=== PATIENT | male | born 1945 | race Caucasian/White ===

== ENCOUNTER 2023-02-04 21:22 | Inpatient (IN) | payer OTHER ==
[2023-02-04 22:16] LABS: BASOPHILS ABSOLUTE AUTO 0.05 K/mm3 (0.00-0.23); BASOPHILS PERCENT AUTO 1 % (0-2); EOSINOPHILS ABSOLUTE AUTO 0.13 K/mm3 (0.00-0.68); EOSINOPHILS PERCENT AUTO 2 % (0-6); Hemoglobin 12.6 g/dL (13.5-17.5); IMMATURE GRAN ABSOLUTE AUTO 0.04 K/mm3 (0.00-0.10); IMMATURE GRAN PERCENT AUTO 1 % (0-1); LYMPHOCYTES ABSOLUTE AUTO 1.36 K/mm3 (0.84-5.20); LYMPHOCYTES PERCENT AUTO 19 % (21-46); MONOCYTES PERCENT AUTO 8 % (4-13); Mean Corpuscular HGB Conc 34.1 g/dL (31.5-36.5); Mean Corpuscular Volume 91 fL (80-100); Mean Platelet Volume 9.3 fL (9.1-12.4); NEUTROPHILS ABSOLUTE AUTO 5.04 K/mm3 (1.96-9.15); NEUTROPHILS PERCENT AUTO 70 % (41-73); Platelet Count 163 K/mm3 (150-400); RDW Standard Deviation 40.2 fL (35.1-46.3); Red Blood Cell Count 4.06 M/mm3 (4.30-5.90); White Blood Cell Count 7.22 K/mm3 (4.00-11.30)
[2023-02-04 22:25] LABS: Base Excess Venous 8.3 mmol/L; pH Blood Venous 7.39 (7.34-7.37)
[2023-02-04 22:31] LABS: International Normalized Ratio 0.98; Prothrombin Time Results 10.3 Sec (9.7-11.5)
[2023-02-04 22:51] LABS: Albumin, Blood 3.4 g/dL (3.4-5.0); Albumin/Globulin Ratio 0.8 (0.8-1.8); Bilirubin, Total 0.2 mg/dL (0.1-1.0); Calcium, Blood 8.9 mg/dL (8.5-10.1); Creatinine, Blood 1.5 mg/dL (0.60-1.20); Globulin, Blood 4.1 g/dL (2.2-4.0); Phosphorus, Blood 2.7 mg/dL (2.5-4.9); Potassium, Blood 4.2 mmol/L (3.5-5.5); Thyroid Stimulating Hormone 6.46 uIU/mL (0.360-4.800); Total Protein, Blood 7.5 g/dL (6.4-8.2)
[2023-02-04] MEDS ORDERED: Acetaminophen650 M1 PO (23:31)
[2023-02-04] MEDS ORDERED: AMLO10 PO (23:31)
[2023-02-04] MEDS ORDERED: BISA10S PR (23:31)
[2023-02-04] MEDS ORDERED: DIVA500EC PO (23:32)
[2023-02-04] MEDS ORDERED: VITAMIN D5000 UNIT PO (23:32)
[2023-02-04] MEDS ORDERED: DRON5 PO (23:33)
[2023-02-04] MEDS ORDERED: DRON2.5 PO (23:33)
[2023-02-04] MEDS ORDERED: DONEPEZIL HCL10 MG PO (23:33)
[2023-02-04] MEDS ORDERED: GABA100 PO (23:34)
[2023-02-04] MEDS ORDERED: BASAGLAR K100 UNIT/1 SC (23:34)
[2023-02-04] MEDS ORDERED: LORA2 SC (23:35)
[2023-02-04] MEDS ORDERED: MELA3 PO (23:35)
[2023-02-04] MEDS ORDERED: LOSA50 PO (23:35)
[2023-02-04] MEDS ORDERED: OLAN5 IM (23:36)
[2023-02-04] MEDS ORDERED: MIRALAX17 GM PO (23:36)
[2023-02-04] MEDS ORDERED: PROP10 PO (23:37)
[2023-02-04] MEDS ORDERED: Seroquel Xr50 MG PO ×2 (23:38→23:39)
[2023-02-05] VITALS (19 sets, daily range): BP systolic 123–169; BP diastolic 56–115
--- NOTE | 2023-02-05 04:45 | NUR ---
ADMISSION/SHIFT SUMMARY PT ADMITTED TO PCU 05 @ 0330. PT SLID OVER FROM [facility] BED. PT LETHARGIC UPON ASSESSMENT, RESPONDS TO PAINFUL STIMULI ONLY. PT ADMITTED FOR HEMORRHAGIC STROKE. PT WITH R. SIDE DEFECIT AND R. FACIAL DROOP. UNABLE TO FOLLOW COMMANDS OR MAKE NEEDS KNOWN. BP STABLE, HR SB 50'S, AFEBRILE, SATS >98% ON ROOM AIR. PULSES STRONG AND EQUAL. RESPIRATIONS SHALLOW, LUNG SOUNDS CLEAR IN UPPER, DIM IN BASES. PT ADMITTED WITH COMFORT CARE MEASURES ONLY. PT SON AT BEDSIDE. WHILE DISCUSSING COMFORT CARE MEASURES, PT CONFUSED ON DIFFERENCE BETWEEN COMFORT CARE AND DNR/DNI THIS RN EXPLAINED DIFFERENCE OF DNR/DNI AND COMFORT CARE MEASURES. SON THEN CALLED PT AND DISCUSSED CODE STATUS. FAMILY WOULD LIKE TO CHANGE PT CODE STATUS FROM COMFORT CARE TO DNR/DNI AT THIS TIME AND RE EVALUATE LATER. ARBORICULTURE TEACHER SHERYL MADE AWARE, CALL PLACED OUT TO MD. MD CHANGED PT CODE STATUS TO NOW DNR/DNI, ORDERS FOR PALLETIVE CARE RECEIVED. BED IN LOW, ALARM ON, CALL LIGHT IN REACH.
--- NOTE | 2023-02-05 10:23 | NUR ---
AM NOTE: PATIENT LAYING IN BED EYES CLOSED, SNORING. PATIENT DOES NOT WAKE TO VERBAL OR TOUCH STIMULOUS, NOT OPENING EYES. GROANS AND MOANS WITH PAINFUL STIMULI NO WORDS. PUPILS PINPOINT AND NONRESPONSIVE. PATIENT NOT FOLLOWING ANY COMMANDS. SPONTANOUS MOVEMENT TO LEFT ARM/HAND, PATIENT PULLING AT SHEETS, ATTENDS AND GOWN WITH LEFT SIDE. NO MOVEMENT ON RIGHT SIDE OBSERVED BY THIS RN. PATIENT NOT SQUEEZING RIGHT HAND. Q2 TURNING AND NEEDED. BED BATH GIVEN THIS AM. ON ROOM AIR, LUNGS SOUNDING CLEAR AND DIMINISHED IN BASES. SNORE OBSERVED PATIENT SLEEPS. SATING UPPER 90'S. BOWEL TONES PRESENT. PATIENT NPO. ORAL CARE Q4 AND NEEDED. ATTENDS IN PLACE. PATIENT INCONTINENT. BP STABLE. NO TELE, MEDICAL STATUS. PPP. NO EDEMA NOTED. BLOOD SUGARS Q6. SCATTERED BRUISING TO ARMS AND REDNESS NOTED TO FOREHEAD. FAMILY AT BEDSIDE. DR. ARMENDARIZ AND PALLIATIVE CARE RN CALLED. PALLIATIVE CARE RN AT BEDSIDE. CALL LIGHT IN REACH.
[2023-02-05 10:39] LABS: BASOPHILS ABSOLUTE AUTO 0.05 K/mm3 (0.00-0.23); BASOPHILS PERCENT AUTO 0 % (0-2); EOSINOPHILS ABSOLUTE AUTO 0.03 K/mm3 (0.00-0.68); EOSINOPHILS PERCENT AUTO 0 % (0-6); Hematocrit 41.5 % (37.0-53.0); Hemoglobin 14.1 g/dL (13.5-17.5); IMMATURE GRAN ABSOLUTE AUTO 0.05 K/mm3 (0.00-0.10); IMMATURE GRAN PERCENT AUTO 0 % (0-1); LYMPHOCYTES ABSOLUTE AUTO 1.23 K/mm3 (0.84-5.20); LYMPHOCYTES PERCENT AUTO 10 % (21-46); MONOCYTES ABSOLUTE AUTO 0.75 K/mm3 (0.16-1.47); MONOCYTES PERCENT AUTO 6 % (4-13); Mean Corpuscular HGB 30.8 pg (26.0-34.0); Mean Corpuscular Volume 91 fL (80-100); Mean Platelet Volume 9.2 fL (9.1-12.4); NEUTROPHILS ABSOLUTE AUTO 9.82 K/mm3 (1.96-9.15); NEUTROPHILS PERCENT AUTO 82 % (41-73); Platelet Count 165 K/mm3 (150-400); RDW Coefficient Variation 12.2 % (11.7-14.2); RDW Standard Deviation 40.2 fL (35.1-46.3); Red Blood Cell Count 4.58 M/mm3 (4.30-5.90); White Blood Cell Count 11.93 K/mm3 (4.00-11.30)
--- NOTE | 2023-02-05 10:48 | NUR ---
PATIENT TO CT AT THIS TIME
[2023-02-05 11:17] LABS: Albumin, Blood 3.7 g/dL (3.4-5.0); Bilirubin, Total 0.3 mg/dL (0.1-1.0); Bun/Creatinine Ratio 17.7 (12.0-20.0); Calcium, Blood 9.4 mg/dL (8.5-10.1); Creatinine, Blood 1.47 mg/dL (0.60-1.20); Globulin, Blood 3.8 g/dL (2.2-4.0); Potassium, Blood 4.2 mmol/L (3.5-5.5); Total Protein, Blood 7.5 g/dL (6.4-8.2)
--- NOTE | 2023-02-05 11:37 | NUR ---
PATIENT BACK FROM CT. SBP 127, NO NEED FOR IV HYDRALAZINE AT THIS TIME. REPOSITIONED. AFTERNOON BLOOD SUGAR ELEVATED, INSULIN GIVEN PER EMAR. FAMILY REMAINS AT BEDSIDE. NEURO CHECK: NEURO REMAINS UNCHANGED. PATIENT PUPILS CONTINUE TO BE PINPOINT AND NONREACTIVE. PATIENT SLEEPING WITH OCCASIONAL SNORE. NOT OPENING EYES. OCCASIONAL MOAN WITH FACIAL GRIMACE WHEN TURNING. NO WORDS. SUCTION AT BEDSIDE. MILD GAG REFLEX WITH SUCTION. MOVING LEFT ARM TO PULL AT BLANKETS AND ATTENDS. STRONG WAREHOUSE SHIFT SUPERVISOR IN LEFT HAND. NO PURPOSEFUL MOVEMENT NOTED ON RIGHT SIDE. OCCASIONAL SHAKES LASTING A FEW SECONDS OBSERVED IN BILATERAL UPPER EXTREMITIES, MAINLY WHEN PATIENT IS BEING TURNED OR STIMULATED WITH CARES.
--- NOTE | 2023-02-05 16:01 | NUR ---
AT BEDSIDE. DR. ARMENDARIZ AND DR. BELL IN TO TALK WITH . PATIENT PRESENTING UNCHANGED FROM THIS AM. TEMP SLIGHTLY HIGHER. PRN TYLENOL ORDERED BY DR. ARMENDARIZ. PLAN FOR CT SCAN TONIGHT AT 2100. AFTER PROVIDER VISIT PATIENT BECOMING MORE AND MORE AGGITATED. PULLING AT CORDS/LINES/ATTENDS/LINNENS. . NOT ABLE TO CONSOLE WITH REPOSITIONING AND VERBAL REASSURANCE. PATIENT CONTINUES TO BE AGGITATED. IM ZYPREXA GIVEN PER EMAR. TEMP INCREASING TO 100.1-100.3. PRN IN TYLENOL GIVEN. COLD WASH CLOTH APPLIED TO FOREHEAD AND FAN. SBP 140'S. IV HYDRALAZINE GIVEN PER EMAR, BP TRENDING DOWN WITH SBP 130'S. PALLIATIVE CARE RN BACK TO CHECK ON PATIENT. REMAINS AT BEDSIDE. PATIENT RESTING AND CALM AT THIS TIME.
--- NOTE | 2023-02-05 18:41 | NUR ---
SHIFT SUMMARY: NO CHANGES TO NEURO EXCEPT INTERMIT AGGITATION. SEE PREVIOUS NOTES WITH NEURO DETAILS. Q2 TURNING AND NEEDED. PATIENT INCONTINENT IN ATTENDS. PATIENT AT TIMES PULLING AT ATTENDS AND LINNENS. BLADDER SCAN DONE SHOWING 212ML. PATIENT LIFTING LEFT ARM TO HEAD AND GRIMACING. IV FENTANYL GIVEN WITH GOOD RELIEF PATIENT CALMED AND WAS ABLE TO REST. STATES PATIENT HAS HISTORY OF SLEEP APNEA. PATIENT IN DEEPER SLEEP POST IV PAIN MEDICATION. 2L NASAL CANNULA PLACED. SBP REMAINS 130'S. TEMP MAX THIS SHIFT 100.3. PRN RECTAL TYLENOL GIVEN. TEMP TRENDING DOWN. Q6 BLOOD SUGARS. REMAINS AT BEDSIDE THROUGHOUT SHIFT. PLAN FOR CT AT 2100. Q4 ORAL CARE AND NEEDED. CALL LIGHT IN REACH. Q2 NEURO CHECKS AND NEEDED. BED ALARM IN PLACE.
--- NOTE | 2023-02-05 18:44 | NUR ---
Review of pt with hospitalist. Met with family at bedside this morning. Review of his history with and son. They showed signs of fatigue and weary from discussion. Tried to get them to do most of the talking. They asked many questions. Review of his history and medical history. They are considering comfort care. They requested another CT scan which showed sme small expansion. Will repeat one tonight. They asked how hospice would work. Review of hospice in [facility] where he resides. Suggested they take a break, Talk more as a family. Relayed they will need hospice they just need to decide when. Pt batting at face during conversation. Did therputic touch to face and tempels. explained his movement were probaly related to aggitationfrom the pressure in his head. Advised family that he is acombat and has suffered and you as a family have suffered. Adviesed our suggestions for hospice are based on giving him dignity and a comfortable repecful passing. Pt having elevated temp review with nursing his neurological changes and risk for seizure and a medication plan. Revaluate pt late today resting goal is trasition to comfort care tonight. Suggest comfort protcol for ativan for comfort and seperate order for seizure activity.
--- NOTE | 2023-02-05 20:08 | NUR ---
ASSUMPTION OF CARE: PATIENT IS RESPONSIVE TO PAIN ONLY, WITHDRAWALS, NO VERBAL WORDS. PUPILS FIXED AND PINPOINT. SNORING WHILE SLEEPING WAS PLACED ON 1.5L OF O2 TO MAINTAIN SATURATIONS, LOOKS COMFORFTABLE WEAK COUGH. PULLS AT CORDS, LINES, NC, ATTENDS. MOANS AND GROANS AT TIMES. GRIMACES AWAY FROM ORAL CARE. UNABLE TO ASSESS SWALLOW, Q4 ORAL CARE. INCONTINENT OF URINE, ATTENDS IN PLACE. AT BEDSIDE. PLAN FOR CT THIS EVENING TO CONFIRM WORSENING BLEED. PATIENT DNR, CPOT PAIN 0 AT THIS TIME. WILL CONTINUE TO MONITOR. Q 2 TURNS PCT AWARE.
[2023-02-06] VITALS: BP 131/75
--- NOTE | 2023-02-06 00:59 | NUR ---
AFTER ABOUT AN HOUR OF ASSUMPTION PATIENT AGITATION WAS INCREDIBLY DIFFICULT TO MANAGE WITH MEDICATIONS, HAD TO SPEAK TO PROVIDER FOR ADDITIONAL DOSE OF OLANZAPINE DUE TO EXTREME AGITATION AND INCREASED BLOOD PRESSURE DUE. PATIENT WAS ABLE TO MAINTAIN LONG ENOUGH IN CT. CT REPORT HAS BEEN READ, RESIDENT AWARE, NO CHANGE IN STATUS OR PLAN OF CARE. AFTER ZYPREXA AND DOSE OF FENTANYL, PATIENT HAS SEEMED TO CALL DOWN ENOUGH TO SLEEP FOR THE LAST 1-2 HOURS. REPOSITIONED Q1 UP TO THIS POINT, 2 X BRIEF CHANGE. PA TYLENOL ALSO GIVEN.
[2023-02-06 03:00] VITALS: BP 142/84
[2023-02-06 04:00] VITALS: BP 148/63
--- NOTE | 2023-02-06 06:50 | NUR ---
EOS: PATIENT HAS BEEN VERY AGITATED REQUIRING MANY PRN MEDS, FREQUENT REPOSITIONS, BREIF CHANGES, CBG IS STILL ELEVATED DESPITE COVERAGE, PATIENT HAS BEEN NEEDING MORE HTN MEDS FOR CONTROL OF SBP <140. ATIVAN HAS BEEN GIVEN FREQUENTLY. HELD OFF ON IM ZYPREXA FOR DAY. AFEBRILE THROUGH THE NIGHT IA TYLENOL WITH MUCH RELIEF. FENTANYL TENDS TO WORK THE BEST FOR AGITATION AND PULLING AT LINES, NO OBVIOUS SIGNS FO CHEST PAIN PRESSURE OR SOB.
[2023-02-06 07:23] VITALS: BP 135/75
--- NOTE | 2023-02-06 10:02 | NUR ---
AM NOTE: AT BEDSIDE UPON SHIFT START. PATIENT RESTLESS AND PULLING AT ATTENDS WITH LEFT ARM. MOANING AND FACIAL GRIMACE. MEDICATED PER EMAR WITH PAIN MEDICATION. PATIENT ABLE TO RELAX POST PAIN MEDICATION ADMINISTRATION. PUPILS REMAIN PINPOINT AND NONRESPONIVE. PATIENT NOT OPENING EYES BUT GROANING TO PAINFUL STIMULI. NO WORDS. NO MOVEMENT OBSERVED ON RIGHT SIDE. PATIENT USING LEFT ARM/HAND TO PULL AT ATTENDS AND SHEETS. OCCASIONAL SHAKY OBSERVED IN BILATERAL UPPER EXTREMITIES. Q2 TURNING AND NEEDED. NO TELE. ON 2-3L NASAL CANNULA SATING UPPER 90'S. LUNGS SOUNDING CLEAR AND DIMINISHED. APNEA NOTED OF 10-15 SECONDS WITH INTERMIT LOUD SNORE. MOUTH BREATHING. ORAL CARE Q4 AND NEEDED. SUZANNA AT BEDSIDE WITH SON AND DAUGHTER ON PHONE. FAMILY DECISION FOR COMFORT CARE. THIS RN SUPPORTIVE IN FAMILY DECISION AND EDUCATING ON COMFORT CARE. DR. JONES IN TO DISCUSS COMFORT CARE WITH FAMILY. EVERYONE IN PATIENT FAMILY AGGREANCE TO COMFORT CARE. DR. JONES TO PLACE COMFORT CARE ORDERS. PATIENT RESTING PEACFULLY AT THIS TIME. ATTENDS CLEAN AND DRY. LEFT AND ASKED TO BE CALLED WITH ANY UPDATES. UNDERSTANDING OF PATIENT MEDICAL STATUS. SUZANNA OR SON MAGDALENA TO BE CALLED WITH UPDATES. BED ALARM ON FOR SAFETY.
--- NOTE | 2023-02-06 12:45 | NUR ---
FENTANYL PATCH PLACED TO RIGHT SHOULDER. PATIENT RESTING PEACEFULLY. REPOSITIONED AND ATTENDS CHECKED.
--- NOTE | 2023-02-06 12:59 | NUR ---
SUZANNA CALLED AND UPDATED.
--- NOTE | 2023-02-06 17:31 | NUR ---
SHIFT SUMMARY: PATIENT PRESENTING WITH LESS AGITATION THROUGHOUT THIS SHIFT COMPARED TO YESTERDAY DAY SHIFT. MEDICATED PER EMAR FOR PAIN AND COMFORT. FENTANYL PATCH TO RIGHT SHOULDER. ATTENDS IN PLACE. REPOSITIONING Q1-2 HOURS AND NEEDED. PATIENT CONTINUES TO HAVE INTERMIT APNEA FOLLOWED BY LOUD SNORE. PATIENT PULLING AT NASAL CANNULA. NASAL CANNULA REMOVED DUE TO IT IRRIATING PATIENT. SCOPALAMINE PATCH TO LEFT POSTERIOR EAR. SUCTION AT BEDSIDE. PATIENT RESTING CALMING IN BED AT THIS TIME. DOES NOT APPEAR TO BE IN ANY DISTRESS.
--- NOTE | 2023-02-06 17:40 | NUR ---
SUZANNA CALLED TO UPDATE PRIOR TO END OF SHIFT. NO ANSWER, MESSAGE LEFT WITH CALL BACK NUMBER. PATIENT CONTINUES TO REST PEACFULLY. DOES NOT APPEAR TO BE IN ANY DISTRESS. REPOSITIONED AT THIS TIME.
--- NOTE | 2023-02-07 05:00 | NUR ---
PATIENT AT ~0400 BECAME VERY AGITATED, PAINFUL, MEDICATED WELL, SPO2 MONITOR CONTINUED TO DECREASE AND DECREASE, INFORMED, PATIENT MUCH MORE PEACEFUL WITH MEDICATIONS, ON WAY, PCT IN THE ROOM WITH PATIENT MUCH MORE EMINENT.
--- NOTE | 2023-02-07 10:30 | NUR ---
PATIENT TIME OF 907, SECOND RN EDMUND HEBERT IN TO VERIFY. FAMILY AT BEDSIDE. UPON SHIFT START PATIENT HAD OCCASIONAL GRIMACE AND MOAN. MEDICATED PER EMAR. FAMILY PRESENT AT BEDSIDE. APNEA WITH CHEYENE CONNELLY BREATHING. SUCTION NEEDED. TURNING AND ENSURING PATIENT IS COMFORTABLE NEEDED. PATIENT MEDICATED X2 WITH PAIN MEDICATIONS. TIME OF 907. FAMILY CHOICE OF [facility]. [facility] IN TO PICK PATIENT UP. CALLED AND UPDATED.
== END 2023-02-07 09:08 | DRG 65 ==
LOC: ER 21:22 → PCU 02-05 03:51
PROVIDERS: Emergency Medicine; ADMIT Internal Medicine
DX: I60.9 Nontraumatic subarachnoid hemorrhage, unspecified (principal); G81.91 Hemiplegia, unspecified affecting right dominant side; Z66 Do not resuscitate; Z51.5 Encounter for palliative care; R29.810 Facial weakness; F03.C0 Unspecified dementia, severe, without behavioral disturbance, psychotic disturbance, mood disturbance, and anxiety; R56.9 Unspecified convulsions; I10 Essential (primary) hypertension; E11.40 Type 2 diabetes mellitus with diabetic neuropathy, unspecified; Z79.899 Other long term (current) drug therapy; Z88.5 Allergy status to narcotic agent; Z88.8 Allergy status to other drugs, medicaments and biological substances
CPT/HCPCS: 36415; 70450; 71045; 72125; 72170; 80053; 82803; 82947; 83735; 84100; 84443; 84484; 85025; 85610; 85730; 93005; 93010; 94762; 96365; 96372-59; 96375; 96376; 99285-25; A9270; J0360; J1815; J1953; J2060; J2250; J2405; J3010